=== PATIENT | male | born 1940 | race Caucasian/White ===

== ENCOUNTER 2016-04-03 09:11 | Observation (INO) | payer OTHER ==
--- NOTE | ~2016-04-03 | DS ---
Discharge Summary [facility] [address] [place]. [address] NAME: SHANTANU CHILD : 39 STATUS : DIS IN PAT#: [id number] AGE: 75 ADM/REG DATE : 04/03/16 MR#: [id number] REPORT SERV DATE: 04/05/16 DICTATED BY: DIRK HESTER DATE: 04/04/16 REPORT STATUS : Draft TRANSCRIBED BY: SILVINA DATE: 04/04/16 ADMISSION DATE: 04/03/2016 DISCHARGE DATE: 04/04/2016 CONSULTATION: Cardiology. PROCEDURE: Automatic implantable cardioverter-defibrillator interrogation. ADMISSION DIAGNOSES: Presyncope, orthostatic hypotension, bradycardia, heart failure with reduced EF, status post automatic implantable cardioverter-defibrillator placement. DISCHARGE CONDITION: Stable. HISTORY OF PRESENT ILLNESS: For detailed HPI, please make reference to Dr. Westfall's dictation on 04/03/2016. In brief, this is a 75-year-old male, who has medical history significant for congestive heart failure with reduced EF and status post AICD placement, who presented to the hospital with reports of generalized fatigue and lightheadedness and noted to have had multiple AICD discharge. He reported that the AICD provided multiple shocks at a time and while he was having this episode of generalized lightheadedness, he decided to come to the ER for further evaluation. Of note, the patient recently moved from [place] to [place] and has not established care with a agricultural scientist at the time of presentation. HOSPITAL COURSE: Cardiology was consulted who recommended interrogation of the AICD. It was noted that the patient had 10 episodes of slow ventricular episodes at 135 beats per minute. Changes were made to the patient's AICD setting. The VT 1 zone was decreased to 130 beats per minute with a paced rate up to 70 beats per minute per Cardiology recommendation. Given this adjustment to the AICD, Cardiology was comfortable for the patient to be discharged to home to follow up as an outpatient. Cardiology also recommended the patient's metoprolol to be increased to 25 mg b.i.d. and to follow up with Cardiology within one week of discharge. DISCHARGE DISPOSITION: The patient will be discharged home to follow up with Cardiology and primary care physician as an outpatient. ETHAN/SILVINA Dirk Hester MD / [id number] CC: Dirk Hester MD
--- NOTE | ~2016-04-03 | CN ---
Consultation Report [facility] [address] [place]. [address] NAME: SHANTANU CHILD : 39 STATUS : ADM IN PAT#: [id number] AGE: 75 ADM/REG DATE : 04/03/16 MR#: [id number] REPORT SERV DATE: 04/04/16 DICTATED BY: MIKE MAURICIO DATE: 04/04/16 REPORT STATUS : Draft TRANSCRIBED BY: SILVINA DATE: 04/04/16 DATE OF CONSULTATION: 04/04/2016 REFERRING PHYSICIAN: Demi Westfall M.D. REASON: Ventricular arrhythmia. HISTORY OF PRESENT ILLNESS: The patient is a 75-year-old man who is new to the [facility] from [place]. He has a longstanding ischemic cardiomyopathy with an AICD placed around three or four years ago. He has just moved here and does not have an EP doctor just yet. He does have a fairly significant recent history for ventricular tachycardia. He is maintained on amiodarone. He is here because he woke up and had palpitations. He did have some dizziness and a little bit of chest discomfort. That has since spontaneously gone and he is back to his baseline. He states he has had several of these similar episodes over the last couple of months. No syncope. No device shocks. His director recreation center in [place], Dr. Kincaid, is aware of the situation and has been titrating medications. PAST MEDICAL HISTORY: 1. Coronary artery disease with history of myocardial infarction. 2. Ischemic cardiomyopathy with AICD. SOCIAL HISTORY: As above, he is new to [place]. He is . He does not smoke. FAMILY HISTORY: Noncontributory. HOME MEDICATIONS: 1. Ambien 10 mg at bedtime. 2. Metoprolol 12.5 mg daily. 3. Various vitamins. 4. Entresto 24/26 mg b.i.d. 5. Amiodarone 200 mg b.i.d. ALLERGIES: HE IS ALLERGIC TO CHLOE INHIBITORS, PENICILLIN, AND MIDODRINE. REVIEW OF SYSTEMS: A 10-system review was asked and is negative except for noted above in the history of present illness. He has not had any recent medication changes. No cold or flu symptoms. No other major changes in his health history as of late. PHYSICAL EXAMINATION: VITAL SIGNS: Temperature 97.7, heart rate 70, blood pressure 142/76. GENERAL: The patient is a well-developed, well-kempt man, in no acute distress. He is alert and oriented to person and place. HEENT: Negative. He is not dehydrated. LUNGS: Clear. Consultation Report [facility] [id number] [place]. [address] NAME: SHANTANU CHILD : 39 STATUS : ADM IN PAT#: [id number] AGE: 75 ADM/REG DATE : 04/03/16 MR#: [id number] REPORT SERV DATE: 04/04/16 DICTATED BY: MIKE MAURICIO DATE: 04/04/16 REPORT STATUS : Draft TRANSCRIBED BY: MODBert DATE: 04/04/16 HEART: Tones are regular. There is a murmur. ABDOMEN: Negative. He has good bowel sounds. EXTREMITIES: Does not show edema. NEUROLOGIC: He is intact with normal speech and normal strength bilaterally in his arms and legs. SKIN: Does not show any rash. No bruising. LABORATORY DATA: White blood cell count 8, hematocrit 44, and platelet count 121. INR 1.1. Sodium 141, potassium 4.4, BUN 12, creatinine 0.95. Troponin is 0.03. Magnesium 2.2. ELECTROCARDIOGRAM: Shows a paced rhythm. DEVICE INTERROGATION: This was discussed with me verbally over the phone by the ER physician, but I do not see it in the chart. Apparently, a wide-complex tachycardia was documented. The interrogation did confirm this was ventricular tachycardia and not SVT with aberrancy. IMPRESSION: Wide-complex arrhythmia that appears to be ventricular tachycardia. PLAN: This is not new for the patient. He is back to his baseline now. It is okay with me if he goes home today. I will obtain records from his [place] director recreation center and bulk picker. He will change care to me. He will remain on amiodarone. I will increase his beta-yolanda 25 mg b.i.d. I will ask [employer] to re-interrogate his device today and his increase his lower pacing rate to 70 beats per minute. We will also likely change some antitachycardia pacing settings to make sure that he does not get shocked in the near future. Options in the future would include sotalol, mexiletine, flecainide, and ablation. As above, he can go home today after he is interrogated and will follow up with me in about a week. He and his agree with this plan. Thank you for the consultation. CARA/SILVINA Mike Mauriico M.D. / [id number] CC: Dirk Luis MD
--- NOTE | ~2016-04-03 | HP ---
History And Physical [facility] [place] [address] [place]. [address] NAME: SHANTANU CHILD : 39 STATUS : ADM IN [facility]#: [id number] AGE: 75 ADM/REG DATE : 04/03/16 MR#: [id number] REPORT SERV DATE: 04/03/16 DICTATED BY: THEODORE ARCOS DATE: 04/03/16 REPORT STATUS : Draft TRANSCRIBED BY: MODBert DATE: 04/03/16 DATE OF ADMISSION: 04/03/2016 HISTORY OF PRESENT ILLNESS: The patient is a 75-year-old male patient, who recently moved here to [place] from [place]. He has his tub chucker in [place] and has cardiac issues like chronic congestive heart failure with an ejection fraction of only about 27%-30% status post AICD placement. The patient came in this morning because he felt increasingly weak and felt almost like passing out and felt his AICD fire multiple times. Because of the shock that the AICD was providing him multiple times and because of the fact that he felt dizzy and almost like passing out and extremely weak, he feared that something was wrong with his defibrillator and decided to come into the emergency room here. PAST MEDICAL HISTORY: Significant for congestive heart failure and cardiomyopathy with an ejection fraction of 27%-30%. The patient has his tub chucker in [place] and recently moved to [place] from [place]. He is in the process of establishing a tub chucker here. The patient also has an AICD placed, and he said that he has not been checked recently or in the last few months. Other than these complaint, the patient has no other issues whatsoever. REVIEW OF SYSTEMS: Review of systems is negative for chest pain, headaches, blurry vision, trouble swallowing, cough, fever, nausea, vomiting, abdominal pain, diarrhea, dysuria, hematuria, blood in stool, joint pains, etc. PAST MEDICAL HISTORY: Significant for chronic systolic and diastolic congestive heart failure, chronic cardiomyopathy with an ejection fraction of 27%-30%, status post AICD placement, insomnia for which he takes zolpidem on a regular basis. The patient states that he has no other problems with any other organ other than his heart. SOCIAL HISTORY: The patient does not smoke or drink any significant amounts of alcohol or do any illegal drugs. The patient is and lives with his and recently moved to [place]. FAMILY HISTORY: Noncontributory. ALLERGIES: HE IS ALLERGIC TO CHLOE INHIBITORS, PENICILLINS, AND MIDODRINE. HOME MEDICATIONS: His home medications include zolpidem 10 mg at bedtime and metoprolol 12.5 mg p.o. b.i.d. Other vitamins and minerals like vitamins C, Coenzyme Q10, vitamin B12, and vitamin D3. The patient also takes amiodarone 200 mg p.o. b.i.d. He also takes Entresto one tab p.o. b.i.d. The patient also states that this morning because his AICD fired multiple times, he had been told to do this and he did it. He took an extra of amiodarone, so he has taken 400 mg of amiodarone this morning. History And Physical [address] [id number] NAME: SHANTANU CHILD : 39 STATUS : ADM IN [facility]#: [id number] AGE: 75 ADM/REG DATE : 04/03/16 MR#: [id number] REPORT SERV DATE: 04/03/16 DICTATED BY: THEODORE ARCOS DATE: 04/03/16 REPORT STATUS : Draft TRANSCRIBED BY: SILVINA DATE: 04/03/16 PHYSICAL EXAMINATION: GENERAL: On examination, the patient is alert, awake, oriented, and able to give his history himself and denies absolutely any symptoms right now and is lying comfortably in bed. However, he is just worried about his AICD firing multiple times. VITAL SIGNS: His vital signs show that his blood pressure is somewhat on the lower side with 133/74. It was actually lower than this when he came in. Temperature afebrile, pulse is 60 per minute, respirations 17 per minute, and SpO2 of 99% on room air. The patient states that he has not taken his metoprolol either this morning and his blood pressure is still low and his heart rate is still low. HEENT: Unremarkable. There is no facial asymmetry or facial droop. Skin and mucous membranes appear well-hydrated. NECK: There is no JVD, thyromegaly, or lymphadenopathy. CARDIOVASCULAR SYSTEM: S1, S2 appreciated. Paced rhythm noted. AICD is in place. RESPIRATORY SYSTEM: Absolutely clear lungs with no rales or rhonchi noted. Good lung expansion noted. ABDOMEN: Examination of the abdomen reveals a ventral hernia with umbilical hernia. Other than that, no other masses noted. No hepatosplenomegaly noted. No tenderness or guarding noted. EXTREMITIES: There is no pedal edema. Pedal pulses are very well felt. NEUROLOGICAL: No deficits. MUSCULOSKELETAL EXAM: Normal. PSYCHIATRIC EXAM: Normal. LABORATORY DATA: The labs that I have on this patient include the following: His CBC shows a WBC count of 8.2, hemoglobin 16.3, hematocrit 46.7, and platelet count 118. INR is 1.1. Electrolytes are normal. BUN and creatinine are normal. Magnesium is normal. Troponin I is normal. BNP is slightly elevated at 235.7, but this could be his baseline as he has chronic congestive heart failure. He does not seem to be in congestive heart failure right now. Chest x-ray shows no acute cardiopulmonary abnormality at this time. ASSESSMENT: 1. Status post AICD firing multiple times. 2. Near syncope. 3. Orthostatic hypotension. 4. Bradycardia. 5. Chronic systolic and diastolic heart failure with cardiomyopathy and ejection fraction of only 27%-30% according to . 6. AICD placement status. PLAN: The plan is to admit the patient and get Cardiology consult. The patient has already been seen by Dr. Mauricio and the plan is for patient to stay n.p.o. after midnight, so EP studies can be repeated tomorrow. In the meantime, we will continue amiodarone and Entresto. However, we will hold the low- dose metoprolol that the patient is on given the bradycardia and the lower blood pressure History And Physical [address] [address] NAME: SHANTANU CHILD : 39 STATUS : ADM IN [facility]#: [id number] AGE: 75 ADM/REG DATE : 04/03/16 MR#: [id number] REPORT SERV DATE: 04/03/16 DICTATED BY: THEODORE ARCOS DATE: 04/03/16 REPORT STATUS : Draft TRANSCRIBED BY: MODL DATE: 04/03/16 when he came in. Other than this, the patient is doing well with just his medications and I do not think requires diuretics at this time as he definitely is not in any acute failure clinically. His BNP is probably elevated chronically even though I do not have a baseline of his BNP at this time. We will leave the rest of the management to Cardiology, will follow the patient. RRA/MODL Theodore Arcos M.D. / [id number] CC: Theodore Arcos M.D.
[2016-04-03] MEDS ORDERED: AMB10 PO (10:21)
[2016-04-03] MEDS ORDERED: CYANO1000T PO (10:22)
[2016-04-03] MEDS ORDERED: METOPROLOL PO (10:22)
[2016-04-03] MEDS ORDERED: VITC500 PO (10:22)
[2016-04-03] MEDS ORDERED: VITAMIN D31000 UNIT PO (10:23)
[2016-04-03] MEDS ORDERED: CO Q-10100 MG PO (10:23)
[2016-04-03] MEDS ORDERED: SACU1TAB PO (10:24)
[2016-04-03] MEDS ORDERED: TEARS PURE OPH (10:24)
[2016-04-03] MEDS ORDERED: CORDARONE PO (10:24)
[2016-04-03 10:46] LABS: BASOPHILS 0.1 %; BASOPHILS ABSOLUTE 0.01 10/3/uL (0.0-0.16); EOSINOPHILS 0.6 %; EOSINOPHILS ABSOLUTE 0.05 10/3/uL (0.0-0.53); ER CBC TAT 0 Hrs 05 Mins; HEMATOCRIT 46.7 % (40.0-51.0); HEMOGLOBIN 16.3 g/dL (13.6-17.8); IMMATURE GRANULOCYTES 0.6 %; IMMATURE GRANULOCYTES ABSOLUTE 0.05 10/3/uL (0.0-0.11); LYMPHOCYTES 13.8 %; LYMPHOCYTES ABSOLUTE 1.13 10/3/uL (0.67-4.30); MEAN CORPUS HGB CONC 34.9 g/dL (32.0-36.0); MEAN CORPUSCULAR HEMOGLOB 32.1 pg (26.0-34.0); MEAN CORPUSCULAR VOLUME 92.1 fL (80-100); MEAN PLATELET VOLUME 9.2 fL (9.2-13.0); MONOCYTES 10.8 %; MONOCYTES ABSOLUTE 0.88 10/3/uL (0.21-1.20); NEUTROPHILS 74.1 %; NEUTROPHILS ABSOLUTE 6.06 10/3/uL (2.02-8.40); PLATELET COUNT 118 10/3/uL (150-400); RBC DISTRIBUTION WIDTH 13.7 % (12.0-16.0); RED CELL COUNT 5.07 10/6/uL (4.7-6.1); WHITE BLOOD CELLS 8.2 10/3/uL (4.5-10.5)
[2016-04-03 10:47] LABS: MANUAL DIFF NO %
[2016-04-03 10:54] LABS: INTERNATIONAL NORMAL RATI 1.1 UNITS (-); PARTIAL THROMBO TIME 25.6 SEC (22.5-37.2); PROTIME (NOT ORD) 14.3 SEC (12.0-14.5)
[2016-04-03 11:05] LABS: BUN (BLOOD UREA NITROGEN) 11 MG/DL (6-23); CALCIUM, SERUM 8.6 MG/DL (8.5-10.4); CHEST PAIN PROFILE TAT 0 Hrs 24 Mins; CHLORIDE, SERUM 109 MMOL/L (96-112); CO2 (CARBON DIOXIDE) 25 MMOL/L (24-34); CREATININE 0.91 MG/DL (0.70-1.30); GFR AFRICAN AMERICAN 95 ML/MIN (>=60); GFR NON AFRICAN AMERICAN 82 ML/MIN (>=60); GLUCOSE, SERUM 101 MG/DL (60-99); POTASSIUM, SERUM 4.2 MMOL/L (3.5-5.3); SODIUM, SERUM 144 MMOL/L (135-148); TROPONIN I 0.03 NG/ML (<0.05)
[2016-04-03] MEDS ORDERED: LOP25 PO (15:41)
[2016-04-04 05:38] LABS: BASOPHILS 0.2 %; BASOPHILS ABSOLUTE 0.02 10/3/uL (0.0-0.16); EOSINOPHILS 0.8 %; EOSINOPHILS ABSOLUTE 0.07 10/3/uL (0.0-0.53); HEMATOCRIT 44.2 % (40.0-51.0); HEMOGLOBIN 15.3 g/dL (13.6-17.8); IMMATURE GRANULOCYTES 0.5 %; IMMATURE GRANULOCYTES ABSOLUTE 0.04 10/3/uL (0.0-0.11); LYMPHOCYTES 15.9 %; LYMPHOCYTES ABSOLUTE 1.34 10/3/uL (0.67-4.30); MEAN CORPUS HGB CONC 34.6 g/dL (32.0-36.0); MEAN CORPUSCULAR HEMOGLOB 31.8 pg (26.0-34.0); MEAN CORPUSCULAR VOLUME 91.9 fL (80-100); MEAN PLATELET VOLUME 9.7 fL (9.2-13.0); MONOCYTES 11.4 %; MONOCYTES ABSOLUTE 0.96 10/3/uL (0.21-1.20); NEUTROPHILS 71.2 %; NEUTROPHILS ABSOLUTE 5.99 10/3/uL (2.02-8.40); PLATELET COUNT 121 10/3/uL (150-400); RBC DISTRIBUTION WIDTH 13.8 % (12.0-16.0); RED CELL COUNT 4.81 10/6/uL (4.7-6.1); WHITE BLOOD CELLS 8.4 10/3/uL (4.5-10.5)
[2016-04-04 05:40] LABS: MANUAL DIFF NO %
[2016-04-04 05:50] LABS: BUN (BLOOD UREA NITROGEN) 12 MG/DL (6-23); CALCIUM, SERUM 8.2 MG/DL (8.5-10.4); CHLORIDE, SERUM 108 MMOL/L (96-112); CO2 (CARBON DIOXIDE) 21 MMOL/L (24-34); CREATININE 0.95 MG/DL (0.70-1.30); GFR AFRICAN AMERICAN 90 ML/MIN (>=60); GFR NON AFRICAN AMERICAN 77 ML/MIN (>=60); GLUCOSE, SERUM 95 MG/DL (60-99); SODIUM, SERUM 141 MMOL/L (135-148)
[2016-04-04 05:51] LABS: POTASSIUM, SERUM 4.4 MMOL/L (3.5-5.3)
[2016-04-04] MEDS ORDERED: LOP25 PO (16:03)
== END 2016-04-04 16:55 | disposition home or self-care (01) ==
LOC: ER 09:11 → 6NO 13:01
PROVIDERS: Hospitalist
PROC: 4B02XTZ Measurement of Cardiac Defibrillator, External Approach (ICD-10-PCS; principal; 2016-04-03)
DX: I95.1 Orthostatic hypotension (principal); I50.42 Chronic combined systolic (congestive) and diastolic (congestive) heart failure; I42.9 Cardiomyopathy, unspecified; G47.00 Insomnia, unspecified; Z95.810 Presence of automatic (implantable) cardiac defibrillator; Z88.0 Allergy status to penicillin; Z88.8 Allergy status to other drugs, medicaments and biological substances; Z79.899 Other long term (current) drug therapy
CPT/HCPCS: 71010; 80048; 83735; 83880; 84484; 85025; 85610; 85730; 93288; 96372; 96374; 96375; 96376; 99285; A9270-GY; G0378

== ENCOUNTER 2016-06-13 07:51 | Emergency (ER) | payer OTHER ==
[~2016-06-13 07:51] MED LIST: AMB10 PO; CO Q-10100 MG PO; CORDARONE PO; CYANO1000T PO; LOP25 PO; METOPROLOL PO; SACU1TAB PO; TEARS PURE OPH; VITAMIN D31000 UNIT PO; VITC500 PO
[2016-06-13 09:24] LABS: BASOPHILS 0.1 %; BASOPHILS ABSOLUTE 0.01 10/3/uL (0.0-0.16); EOSINOPHILS ABSOLUTE 0.07 10/3/uL (0.0-0.53); HEMATOCRIT 44.8 % (40.0-51.0); HEMOGLOBIN 15.6 g/dL (13.6-17.8); IMMATURE GRANULOCYTES 0.7 %; IMMATURE GRANULOCYTES ABSOLUTE 0.05 10/3/uL (0.0-0.11); LYMPHOCYTES 15.8 %; LYMPHOCYTES ABSOLUTE 1.16 10/3/uL (0.67-4.30); MANUAL DIFF NO %; MEAN CORPUS HGB CONC 34.8 g/dL (32.0-36.0); MEAN CORPUSCULAR HEMOGLOB 32.2 pg (26.0-34.0); MEAN CORPUSCULAR VOLUME 92.6 fL (80-100); MEAN PLATELET VOLUME 9.6 fL (9.2-13.0); MONOCYTES 9.7 %; MONOCYTES ABSOLUTE 0.71 10/3/uL (0.21-1.20); NEUTROPHILS 72.7 %; NEUTROPHILS ABSOLUTE 5.33 10/3/uL (2.02-8.40); PLATELET COUNT 115 10/3/uL (150-400); RED CELL COUNT 4.84 10/6/uL (4.7-6.1); WHITE BLOOD CELLS 7.3 10/3/uL (4.5-10.5)
[2016-06-13 09:30] LABS: INTERNATIONAL NORMAL RATI 1.1 UNITS (-); PARTIAL THROMBO TIME 26.2 SEC (22.5-37.2); PROTIME (NOT ORD) 14.4 SEC (12.0-14.5)
[2016-06-13 09:38] LABS: BUN (BLOOD UREA NITROGEN) 13 MG/DL (6-23); CALCIUM, SERUM 8.3 MG/DL (8.5-10.4); CHEST PAIN PROFILE TAT 0 Hrs 18 Mins; CHLORIDE, SERUM 108 MMOL/L (96-112); CO2 (CARBON DIOXIDE) 24 MMOL/L (24-34); CREATININE 0.91 MG/DL (0.70-1.30); GFR AFRICAN AMERICAN 95 ML/MIN (>=60); GFR NON AFRICAN AMERICAN 82 ML/MIN (>=60); GLUCOSE, SERUM 95 MG/DL (60-99); SODIUM, SERUM 143 MMOL/L (135-148); TROPONIN I 0.04 NG/ML (<0.05)
== END 2016-06-13 11:00 | disposition home or self-care (01) ==
LOC: ER 07:51
PROVIDERS: Emergency Medicine
DX: I47.1 Supraventricular tachycardia (principal); E78.5 Hyperlipidemia, unspecified; Z98.61 Coronary angioplasty status; Z95.810 Presence of automatic (implantable) cardiac defibrillator; I48.91 Unspecified atrial fibrillation; Z88.0 Allergy status to penicillin; Z88.8 Allergy status to other drugs, medicaments and biological substances; Z79.899 Other long term (current) drug therapy
CPT/HCPCS: 71010; 80048; 83735; 84484; 85025; 85610; 85730; 93005; 93288; 99285